=== PATIENT | female | born 1980 | race Caucasian/White ===

== ENCOUNTER 2022-06-26 11:43 | Emergency (ER) | payer OTHER, SELFPAY ==
[2022-06-26 12:12] VITALS: BP 126/83; PULSE 73; RESP 16; TEMP 36.7; O2SAT 99
--- NOTE | 2022-06-26 12:16 | ED.EAR ---
HPI - Ear Problem General Chief complaint: Ear Stated complaint: Right Ear Irritation Time Seen by Provider: 06/26/22 12:15 Source: patient Mode of arrival: ambulatory Limitations: no limitations History of Present Illness HPI Narrative: Ms. Talavera is a 42-year-old male patient presenting to the clinic today with complaints of right-sided ear pain. She reports that this has been going on since Friday. She reports that her ear feels full Related Data Home Medications Medication Instructions Recorded Confirmed losartan 25 mg tablet 25 mg PO DAILY 06/26/22 06/26/22 metformin 500 mg tablet 500 mg PO DAILY 06/26/22 06/26/22 spironolactone 50 mg tablet 50 mg PO DAILY 06/26/22 06/26/22 Allergies Allergy/AdvReac Type Severity Reaction Status Date / Time No Known Allergies Allergy Unknown Verified 06/26/22 12:02 Review of Systems Review of Systems: Pertinent positives per HPI. Patient denies any fever, chills, rash, headache, visual changes, dizziness, cough, runny nose, sore throat, shortness of breath, chest pain, palpitations, nausea, vomiting, diarrhea, constipation, abdominal pain, or any urinary issues. [facility] Family History Family History Other Diabetes mellitus Family history of malignant neoplasm of bone Family history of malignant neoplasm of breast Social History Social History Smoking status: Never smoker Alcohol intake: current Comments At the time of my signature, I reviewed and agree with the nursing past medical, surgical, social, and family history. There is no relevant family history pertinent to the patient complaint. Exam Narrative: General: Well-developed, well nourished, in no apparent distress Head: Normocephalic, atraumatic Eyes: Pupils equally round and reactive to light bilaterally, EOM intact, sclera and conjunctive clear, no discharge, lids normal Ears: left TMs intact and clear, right TM intact, bulging, fluid noted behind the TM,ear canals clear, no drainage, grossly hearing normal. Nose: Nares patent, no discharge, no inflammation, no sinus tenderness. Mouth: Oropharynx without lesions or masses, good dentition, MMM. Neck: Supple, trachea midline, no enlargement of anterior or posterior cervical nodes, no thyroid masses or goiter palpable. Cardio: Regular rate and rhythm, s1 and s2 normal, no murmur appreciated. Resp: Clear to auscultation bilaterally anteriorly and posteriorly, no rhonchi, rales, wheezing or rubs Course Course Emergency Course: Portions of this record may have been created with voice recognition software. Level of Care: Express Care Visit Vital Signs Vital signs: Vital Signs Temperature 36.7 C 06/26/22 12:12 Pulse Rate 73 06/26/22 12:12 Respiratory Rate 16 06/26/22 12:12 Blood Pressure 126/83 06/26/22 12:12 Pulse Oximetry 99 06/26/22 12:12 Oxygen Delivery Room Air 06/26/22 12:12 Temperature 36.7 C 06/26/22 12:12 Pulse Rate 73 06/26/22 12:12 Respiratory Rate 16 06/26/22 12:12 Blood Pressure 126/83 06/26/22 12:12 Pulse Oximetry 99 06/26/22 12:12 Oxygen Delivery Room Air 06/26/22 12:12 Vital signs reviewed Medical Decision Making MDM Narrative Medical decision making narrative: at the time of visit patient is resting comfortably on exam table. I suspect the patient has serous otitis and eustachian tube dysfunction. Supportive measures were discussed with the patient she voiced understanding discharge instructions agrees to treatment plan. Prescription for prednisone was sent to the pharmacy Differential Diagnosis Differential Diagnosis: otalgia, otitis media, serous otitis, eustachian tube dysfunction Vital Signs Vital Signs: Vital Signs Temperature 36.7 C 06/26/22 12:12 Pulse Rate 73 06/26/22 12:12 Respiratory Rate 16 06/26/22 12:12 Blood Pressure
== END 2022-06-26 12:22 | disposition home or self-care (01) ==
PROVIDERS: Emergency Provider Nurse Practitioner Family; PCP Nurse Practitioner Family
DX: H65.01 Acute serous otitis media, right ear (principal); H69.81 Other specified disorders of Eustachian tube, right ear; I10 Essential (primary) hypertension; E28.2 Polycystic ovarian syndrome
CPT/HCPCS: 99213; G0463

== ENCOUNTER → 2023-05-31 11:32 | Outpatient (CLI) | payer OTHER, SELFPAY ==
--- NOTE | ~2023-05-31 | XR_ITS ---
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 COMPARISON: 09/30/2014. FINDINGS: Normal mineralization. No fracture or dislocation. No lytic or blastic lesion. Mild degene rative changes, most notably in the bilateral DIP joints of the fingers, interphalangeal joints of th e thumbs, triscaphe joints, and trapeziometacarpal joints. No erosion or periosteal change. Soft tiss ues within normal limits. IMPRESSION: Mild polyarticular osteoarthritis. Reviewed, dictated and finalized at location K.
== END ==
PROVIDERS: PCP Nurse Practitioner Family; Visit Provider Nurse Practitioner Family
DX: M19.041 Primary osteoarthritis, right hand (principal); M19.042 Primary osteoarthritis, left hand
CPT/HCPCS: 73130